=== PATIENT | male | born 1975 | race Two or more races ===

== ENCOUNTER 2019-11-18 14:05 | Emergency (ER) | payer SELFPAY ==
[~2019-11-18] VITALS: Ht 177.8 cm; Wt 63.5 kg
[2019-11-18 14:13] VITALS: BP 130/80
[2019-11-18] MEDS ORDERED: SODIUM CHLORIDE 0.9% 500 ML IVB ONE (14:24)
[2019-11-18] MEDS ORDERED: HYDROmorphone HCL 2 MG/ML VL IV ONE (14:30)
[2019-11-18] MEDS ORDERED: ONDANSETRON HCL 4 MG/2 ML VIAL IV ONE (14:30)
[2019-11-18 14:52] LABS: Basophils # (auto) 0.1 uL; Lymphocytes # (auto) 1.2 uL
[2019-11-18 14:53] LABS: Basophils % (auto) 0.5 % (0.0-2.0); Eosinophils # (auto) 0.2 uL; Eosinophils % (auto) 1.5 % (0.0-7.0); Hematocrit 35.7 % (41.0-53.0); Hemoglobin 11.5 g/dL (13.5-17.5); Lymphocytes % (auto) 11.3 % (10.0-50.0); Mean Corpuscular Hemoglobin 28.2 pg (28.0-32.0); Mean Corpuscular Hgb Conc. 32.1 g/dL (32.0-36.0); Mean Corpuscular Volume 87.9 fL (80.0-100.0); Monocytes # (auto) 0.9 uL; Monocytes % (auto) 8.7 % (0.0-12.0); Neutrophils # (auto) 8.1 uL; Platelet Count (auto) 472 10^3/uL (140-450); Red Blood Cells 4.06 10^6/uL (4.5-5.90); Red Cell Distribution Width 14.6 % (11.8-14.3); White Blood Cell 10.4 10^3/uL (4.4-10.8)
[2019-11-18 15:11] LABS: Calcium 8.9 mg/dL (8.5-10.1); Potassium 4.1 mmol/L (3.5-5.1)
[2019-11-18 15:13] LABS: BUN/Creatinine Ratio 10.2
[2019-11-18 15:16] LABS: Bilirubin, Total 0.2 mg/dL (0.2-1.0); Total Protein 8.2 g/dL (6.4-8.2)
== END 2019-11-18 15:30 | disposition left against medical advice (07) ==
LOC: EDBD 14:05 → ER 14:18
DX: R10.32 Left lower quadrant pain (principal)
CPT/HCPCS: 36415; 74176; 80053; 82150; 83690; 85025; 99284; J7030